=== PATIENT | female | born 1955 | race Caucasian/White ===

== ENCOUNTER 2018-04-04 19:05 | Emergency (ER) | payer MEDICARE, OTHER ==
[~2018-04-04] VITALS: Ht 162.6 cm; Wt 50.0 kg
[2018-04-04] MEDS ORDERED: PANT40TA25 PO (20:06)
[2018-04-04] MEDS ORDERED: LEVO75 PO (20:06)
[2018-04-04] MEDS ORDERED: ALEN10 PO (20:06)
[2018-04-04] MEDS ORDERED: CLON0.1T PO (20:06)
[2018-04-04] MEDS ORDERED: TRAZ-219 PO (20:10)
[2018-04-04] MEDS ORDERED: MIRT15 PO (20:10)
[2018-04-04] MEDS ORDERED: TRAM50TA4 PO (20:10)
[2018-04-04] MEDS ORDERED: MET750 PO (20:10)
[2018-04-04 20:17] LABS: BASOPHILS % (AUTO) 0.6 % (0.0-2.0); EOSINOPHILS % (AUTO) 0.5 % (1.0-6.0); HEMATOCRIT 38.3 % (36-46); HEMOGLOBIN 13.4 g/dL (12.0-16.0); LYMPHOCYTES # (AUTO) 2.6 K/uL (1.0-4.8); LYMPHOCYTES % (AUTO) 28.6 % (22.0-44.0); MEAN CORPUSCULAR VOLUME 91 fL (80-100); MONOCYTES # (AUTO) 0.7 K/uL (0.1-1.0); NEUTROPHILS # (AUTO) 5.7 K/uL (1.8-7.7); NEUTROPHILS % (AUTO) 62.3 % (40.0-70.0); PLATELET COUNT (AUTO) 233 K/uL (150-450); RED BLOOD CELL COUNT(AUTO) 4.19 MIL/uL (4.00-5.20); RED CELL DISTRIBUTION WIDTH 14.2 % (11.5-14.5)
[2018-04-04 20:27] LABS: ANION GAP 8 mmol/L (8-16); CALCIUM, TOTAL 9.6 mg/dL (8.8-10.5); CARBON DIOXIDE 29 mmol/L (22-29); CHLORIDE 100 mmol/L (98-107); CREATININE 0.54 mg/dL (0.60-1.30); GLOMERULAR FILTR. RATE CALC > 60 mL/min (>60); GLUCOSE,RANDOM 106 mg/dL (70-110); SODIUM SERUM 137 mmol/L (136-145); UREA NITROGEN, BLOOD 14 mg/dL (7-18)
[2018-04-04 20:32] LABS: ALANINE AMINOTRANSFERASE 16 U/L (12-78); ALBUMIN 3.9 g/dL (3.4-5.0); ALKALINE PHOSPHATASE 65 U/L (46-116); ASPARTATE AMINOTRANSFERASE 19 U/L (15-37); BILIRUBIN,TOTAL 0.4 mg/dL (0.1-1.0); TOTAL PROTEIN, SERUM 7.6 g/dL (6.4-8.2)
[2018-04-04 21:16] LABS: AMPHET/METH SCREEN,URINE NEGATIVE (NEGATIVE); BARBITURATE SCREEN, URINE NEGATIVE (NEGATIVE); BENZODIAZEPINES SCREEN,URINE NEGATIVE (NEGATIVE); CANNABINOID SCREEN,URINE NEGATIVE (NEGATIVE); COCAINE SCREEN,URINE NEGATIVE (NEGATIVE); METHADONE SCREEN, URINE NEGATIVE (NEGATIVE); OPIATE SCREEN,URINE NEGATIVE (NEGATIVE); PHENCYCLIDINE SCREEN,URINE NEGATIVE (NEGATIVE)
[2018-04-04 21:26] VITALS: BP 157/83
== END 2018-04-04 21:37 | disposition home or self-care (01) ==
LOC: EMS 19:15
DX: T73.0XXA Starvation, initial encounter (principal); R45.4 Irritability and anger; I10 Essential (primary) hypertension; E03.9 Hypothyroidism, unspecified; F32.9 Major depressive disorder, single episode, unspecified; Z88.8 Allergy status to other drugs, medicaments and biological substances; Z79.899 Other long term (current) drug therapy; X58.XXXA Exposure to other specified factors, initial encounter
CPT/HCPCS: 36415; 80053; 80307; 85025; 99285; G0480

== ENCOUNTER 2020-09-08 19:26 | Emergency (ER) | payer MEDICARE, MEDICAID ==
[~2020-09-08] VITALS: Ht 147.3 cm; Wt 45.5 kg
[~2020-09-08 19:26] MED LIST: ALEN10TA33 PO; CLON0.1T PO; LEVO75 PO; METH-661 PO; MIRT-89 PO; PANT-31 PO; TRAM50TA4 PO; TRAZ-252 PO
[2020-09-08] MEDS ORDERED: SODIUM CHLORIDE 0.9% 500 ML IV ONE (19:45)
[2020-09-08] MEDS ORDERED: ACETAMINOPHEN 500 MG TABLET PO ONE (19:45)
[2020-09-08] MEDS ORDERED: ACETAMINOPHEN 325 MG TABLET PO ONE (20:00)
[2020-09-08 20:26] LABS: BASOPHILS % (AUTO) 0.4 % (0.0-2.0); EOSINOPHILS % (AUTO) 0.1 % (1.0-6.0); HEMATOCRIT 31.5 % (36-46); HEMOGLOBIN 10.8 g/dL (12.0-16.0); LYMPHOCYTES # (AUTO) 2.3 K/uL (1.0-4.8); LYMPHOCYTES % (AUTO) 33.5 % (22.0-44.0); MEAN CORPUSCULAR HEMOGLOBIN 32.1 pg (26.0-34.0); MEAN CORPUSCULAR HGB CONC 34.2 G/dL (31.0-37.0); MEAN CORPUSCULAR VOLUME 94 fL (80-100); MONOCYTES # (AUTO) 0.6 K/uL (0.1-1.0); MONOCYTES % (AUTO) 8.7 % (2.0-9.0); NEUTROPHILS # (AUTO) 3.9 K/uL (1.8-7.7); NEUTROPHILS % (AUTO) 57.3 % (40.0-70.0); PLATELET COUNT (AUTO) 162 K/uL (150-450); RED BLOOD CELL COUNT(AUTO) 3.36 MIL/uL (4.00-5.20); RED CELL DISTRIBUTION WIDTH 12.7 % (11.5-14.5)
[2020-09-08 20:36] LABS: ANION GAP 11 mmol/L (8-16); CALCIUM, TOTAL 9.1 mg/dL (8.8-10.5); CARBON DIOXIDE 24 mmol/L (22-29); CHLORIDE 100 mmol/L (98-107); CREATININE 0.99 mg/dL (0.60-1.30); GLOMERULAR FILTR. RATE CALC 56 mL/min (>60); GLUCOSE,RANDOM 105 mg/dL (70-110); SODIUM SERUM 135 mmol/L (136-145); UREA NITROGEN, BLOOD 28 mg/dL (7-18)
[2020-09-08 20:43] LABS: B-TYPE NATRIURETIC PEPTIDE 21 pg/mL (0-100)
[2020-09-08 21:01] LABS: ALANINE AMINOTRANSFERASE 15 U/L (12-78); ALBUMIN 4.1 g/dL (3.4-5.0); ALKALINE PHOSPHATASE 54 U/L (46-116); ASPARTATE AMINOTRANSFERASE 16 U/L (15-37); BILIRUBIN,TOTAL 0.4 mg/dL (0.1-1.0); CREATINE KINASE, TOTAL ONLY 106 U/L (26-192); TOTAL PROTEIN, SERUM 6.9 g/dL (6.4-8.2)
[2020-09-08 21:48] VITALS: BP 108/57
== END 2020-09-08 23:19 | disposition home or self-care (01) ==
LOC: EMS 19:26
DX: R42 Dizziness and giddiness (principal); Z88.8 Allergy status to other drugs, medicaments and biological substances; Z79.899 Other long term (current) drug therapy
CPT/HCPCS: 71045; 80053; 82550; 83880; 84484; 85025; 93005; 96360; 99285; G0480; J7040; 36415-L1; 36415-TC

== ENCOUNTER 2020-11-28 17:26 | Emergency (ER) | payer MEDICARE, MEDICAID ==
[~2020-11-28] VITALS: Ht 149.9 cm; Wt 59.1 kg
[2020-11-28] MEDS ORDERED: TraMADol HCL 50 MG TABLET PO ONE (19:00)
[2020-11-28 19:22] LABS: BASOPHILS % (AUTO) 1.3 % (0.0-2.0); EOSINOPHILS % (AUTO) 1.6 % (1.0-6.0); HEMATOCRIT 34.3 % (36-46); HEMOGLOBIN 11.5 g/dL (12.0-16.0); LYMPHOCYTES # (AUTO) 1.8 K/uL (1.0-4.8); LYMPHOCYTES % (AUTO) 27.7 % (22.0-44.0); MEAN CORPUSCULAR HEMOGLOBIN 30.7 pg (26.0-34.0); MEAN CORPUSCULAR HGB CONC 33.5 G/dL (31.0-37.0); MEAN CORPUSCULAR VOLUME 92 fL (80-100); MONOCYTES # (AUTO) 0.6 K/uL (0.1-1.0); MONOCYTES % (AUTO) 9.2 % (2.0-9.0); NEUTROPHILS # (AUTO) 3.9 K/uL (1.8-7.7); NEUTROPHILS % (AUTO) 60.2 % (40.0-70.0); PLATELET COUNT (AUTO) 221 K/uL (150-450); RED BLOOD CELL COUNT(AUTO) 3.74 MIL/uL (4.00-5.20); RED CELL DISTRIBUTION WIDTH 15.7 % (11.5-14.5)
[2020-11-28 20:24] LABS: ANION GAP 6 mmol/L (8-16); CALCIUM, TOTAL 9.3 mg/dL (8.8-10.5); CARBON DIOXIDE 27 mmol/L (22-29); CHLORIDE 102 mmol/L (98-107); GLOMERULAR FILTR. RATE CALC > 60 mL/min (>60); GLUCOSE,RANDOM 97 mg/dL (70-110); POTASSIUM 3.8 mmol/L (3.5-5.1); SODIUM SERUM 135 mmol/L (136-145); UREA NITROGEN, BLOOD 18 mg/dL (7-18)
[2020-11-28 20:31] LABS: ALANINE AMINOTRANSFERASE 20 U/L (12-78); ALBUMIN 3.9 g/dL (3.4-5.0); ALKALINE PHOSPHATASE 48 U/L (46-116); ASPARTATE AMINOTRANSFERASE 16 U/L (15-37); BILIRUBIN,TOTAL 0.4 mg/dL (0.1-1.0); TOTAL PROTEIN, SERUM 7.2 g/dL (6.4-8.2)
[2020-11-28 21:49] VITALS: BP 141/88
== END 2020-11-28 20:27 | disposition home or self-care (01) ==
LOC: EMS 17:28
DX: M54.6 Pain in thoracic spine (principal); R07.89 Other chest pain; G89.29 Other chronic pain; F32.9 Major depressive disorder, single episode, unspecified; I10 Essential (primary) hypertension; Z91.011 Allergy to milk products
CPT/HCPCS: 71045; 80053; 85025; 99285; 36415-L1; 36415-TC

== ENCOUNTER 2020-12-04 21:55 | Emergency (ER) | payer MEDICARE, MEDICAID ==
[~2020-12-04] VITALS: Ht 142.2 cm; Wt 39.5 kg
[2020-12-04] MEDS ORDERED: OMEP20 PO (22:30)
[2020-12-04] MEDS ORDERED: LEVO50 PO (22:36)
[2020-12-04] MEDS ORDERED: DICL100G31 TP (22:36)
[2020-12-04] MEDS ORDERED: ALEN70TA65 PO (22:36)
[2020-12-04] MEDS ORDERED: LORA10TA7 PO (22:36)
[2020-12-04] MEDS ORDERED: AMLO-258 PO (22:36)
[2020-12-04] MEDS ORDERED: CALC-789 PO (22:36)
[2020-12-04] MEDS ORDERED: DIVA-85 PO (22:36)
[2020-12-04] MEDS ORDERED: SERT-158 PO (22:36)
[2020-12-04] MEDS ORDERED: [UNRECOGNIZED DRUG - CODE] PO (22:36)
[2020-12-05 03:00] VITALS: BP 130/75
== END 2020-12-05 03:35 | disposition home or self-care (01) ==
LOC: EMS 21:57
DX: M48.56XA Collapsed vertebra, not elsewhere classified, lumbar region, initial encounter for fracture (principal); G89.29 Other chronic pain; M54.5 Low back pain; M54.2 Cervicalgia; M25.571 Pain in right ankle and joints of right foot; E03.9 Hypothyroidism, unspecified; I10 Essential (primary) hypertension; F32.9 Major depressive disorder, single episode, unspecified; Z88.8 Allergy status to other drugs, medicaments and biological substances; Z79.899 Other long term (current) drug therapy
CPT/HCPCS: 72040; 72100; 99284; 73610-TC; Z7502

== ENCOUNTER 2021-01-07 14:07 | Emergency (ER) | payer MEDICARE, MEDICAID ==
[~2021-01-07] VITALS: Ht 165.1 cm; Wt 56.8 kg
[~2021-01-07 14:07] MED LIST changes: -ALEN10TA33 PO; +ALEN70TA65 PO; +AMLO-258 PO; +CALC-789 PO; -CLON0.1T PO; +DICL100G31 TP; +DIVA-85 PO; +LEVO50 PO; -LEVO75 PO; +LORA10TA7 PO; -METH-661 PO; -MIRT-89 PO; +OMEP20 PO; -PANT-31 PO; +SERT-158 PO; -TRAM50TA4 PO; -TRAZ-252 PO; +[UNRECOGNIZED DRUG - CODE] PO
[2021-01-07] MEDS ORDERED: ACETAMINOPHEN 325 MG TABLET PO ONE (16:15)
[2021-01-07 17:50] VITALS: BP 138/80
== END 2021-01-07 18:39 | disposition home or self-care (01) ==
LOC: EMS 14:11
DX: M25.551 Pain in right hip (principal); M54.50 Low back pain, unspecified; Y04.8XXA Assault by other bodily force, initial encounter; Y93.89 Activity, other specified; Y92.89 Other specified places as the place of occurrence of the external cause; Y99.8 Other external cause status
CPT/HCPCS: 72100; 72170; 99284; 99285; Z7502; Z7610

== ENCOUNTER 2021-11-13 14:08 | Inpatient (IN) | payer MEDICARE, MEDICAID ==
[~2021-11-13] VITALS: Ht 142.2 cm; Wt 46.7 kg
[2021-11-13 14:54] LABS: EOSINOPHILS % (AUTO) 0.2 % (1.0-6.0); HEMATOCRIT 37.4 % (36-46); HEMOGLOBIN 12.6 g/dL (12.0-16.0); LYMPHOCYTES # (AUTO) 2.1 K/uL (1.0-4.8); LYMPHOCYTES % (AUTO) 25.8 % (22.0-44.0); MEAN CORPUSCULAR HEMOGLOBIN 30.7 pg (26.0-34.0); MEAN CORPUSCULAR HGB CONC 33.8 G/dL (31.0-37.0); MEAN CORPUSCULAR VOLUME 91 fL (80-100); MONOCYTES # (AUTO) 0.6 K/uL (0.1-1.0); MONOCYTES % (AUTO) 6.9 % (2.0-9.0); NEUTROPHILS # (AUTO) 5.5 K/uL (1.8-7.7); NEUTROPHILS % (AUTO) 66.1 % (40.0-70.0); PLATELET COUNT (AUTO) 222 K/uL (150-450); RED BLOOD CELL COUNT(AUTO) 4.12 MIL/uL (4.00-5.20); RED CELL DISTRIBUTION WIDTH 13.4 % (11.5-14.5)
[2021-11-13 15:17] LABS: ANION GAP 10 mmol/L (8-16); CALCIUM, TOTAL 9.9 mg/dL (8.8-10.5); CARBON DIOXIDE 25 mmol/L (22-29); CHLORIDE 105 mmol/L (98-107); GLOMERULAR FILTR. RATE CALC > 60 mL/min (>60); GLUCOSE,RANDOM 89 mg/dL (70-110); POTASSIUM 4.2 mmol/L (3.5-5.1); SODIUM SERUM 140 mmol/L (136-145); UREA NITROGEN, BLOOD 22 mg/dL (7-18)
[2021-11-13 15:55] LABS: ALANINE AMINOTRANSFERASE 30 U/L (12-78); ALKALINE PHOSPHATASE 70 U/L (46-116); ASPARTATE AMINOTRANSFERASE 26 U/L (15-37); BILIRUBIN,TOTAL 0.5 mg/dL (0.1-1.0); TOTAL PROTEIN, SERUM 7.5 g/dL (6.4-8.2)
[2021-11-13] MEDS ORDERED: ACETAMINOPHEN 500 MG TABLET PO ONE (18:00)
[2021-11-13] MEDS ORDERED: ZOLPIDEM TARTRATE 10 MG TABLET PO PRN (18:45)
[2021-11-13 19:21] LABS: APPEARANCE,URINE CLEAR (CLEAR); BILIRUBIN,URINE NEGATIVE (NEGATIVE); GLUCOSE, URINE (UA) NEGATIVE (NEGATIVE); KETONES,URINE TRACE mg/dL (NEGATIVE); LEUKOCYTE ESTERASE ,URINE MODERATE (NEGATIVE); NITRATE,URINE NEGATIVE (NEGATIVE); OCCULT BLOOD,URINE NEGATIVE (NEGATIVE); PH,URINE 6.5 (5.0-8.0); PROTEIN,URINE TRACE mg/dL (NEGATIVE); UROBILINOGEN,URINE <=1.0 mg/dL (<=1.0)
[2021-11-13 19:28] LABS: AMPHET/METH SCREEN,URINE NEGATIVE (NEGATIVE); BARBITURATE SCREEN, URINE NEGATIVE (NEGATIVE); BENZODIAZEPINES SCREEN,URINE NEGATIVE (NEGATIVE); CANNABINOID SCREEN,URINE POSITIVE (NEGATIVE); COCAINE SCREEN,URINE NEGATIVE (NEGATIVE); METHADONE SCREEN, URINE NEGATIVE (NEGATIVE); OPIATE SCREEN,URINE NEGATIVE (NEGATIVE)
[2021-11-13 19:32] LABS: PHENCYCLIDINE SCREEN,URINE NEGATIVE (NEGATIVE)
[2021-11-13 19:34] LABS: BACTERIA,URINE Few /HPF (None Seen); RBC,URINE 0-2 /HPF (0-2)
[2021-11-14 00:25] LABS: COVID AG,FIA SOURCE NASAL SWAB
[2021-11-14 11:03] VITALS: BP 129/82
[2021-11-14] MEDS ORDERED: ALBUTEROL SULFATE HFA 90 MCG/PUFF 8 GM INHALER IH PRN (11:30)
[2021-11-14] MEDS ORDERED: ONDANSETRON HCL 4 MG TABLET PO PRN (11:30)
[2021-11-14] MEDS ORDERED: LOPERAMIDE HCL 2 MG CAPSULE PO PRN (11:30)
[2021-11-14] MEDS ORDERED: BENZOCAINE/MENTHOL LOZENGE PO PRN (11:30)
[2021-11-14] MEDS ORDERED: BACITRACIN 28 GM OINTMENT TP PRN (11:30)
[2021-11-14] MEDS ORDERED: PETROLATUM,WHITE 28 GM JELLY TP PRN (11:30)
[2021-11-14] MEDS ORDERED: MAG HYDROX/AL HYDROX/SIMETH ES 30 ML SUSPENSION UDCUP PO PRN (11:30)
[2021-11-14] MEDS ORDERED: MAGNESIUM HYDROXIDE SUSPENSION 30 ML UDCUP PO PRN (11:30)
[2021-11-14] MEDS ORDERED: CloNIDine HCL 0.1 MG TABLET PO PRN (11:30)
[2021-11-14 16:18] VITALS: BP 127/75
[2021-11-14] MEDS: ACETAMINOPHEN 325 MG TABLET PO PRN (17:18)
[2021-11-15 00:10] VITALS: BP 122/72
[2021-11-15] MEDS: LEVOTHYROXINE SODIUM 50 MCG TABLET PO SCH (06:35)
[2021-11-15 08:12] VITALS: BP 142/94
[2021-11-15] MEDS: DOCUSATE SODIUM 100 MG CAPSULE PO SCH (08:24)
[2021-11-15] MEDS: LORATADINE 10 MG TABLET PO SCH (08:25)
[2021-11-15] MEDS: AmLODIPine BESYLATE 5 MG TABLET PO SCH (08:25)
[2021-11-15] MEDS: OMEPRAZOLE 20 MG CAPSULE PO SCH (08:25)
[2021-11-15] MEDS: SERTRALINE HCL 50 MG TABLET PO SCH (08:25)
[2021-11-15] MEDS: DIVALPROEX SODIUM 500 MG DR TABLET PO SCH ×2 (08:25→16:29)
[2021-11-15] MEDS: ACETAMINOPHEN 325 MG TABLET PO PRN (08:33)
[2021-11-15 08:56] VITALS: BP 117/74
[2021-11-15 16:31] VITALS: BP 135/75
[2021-11-16 04:32] VITALS: BP 128/78
[2021-11-16] MEDS: LEVOTHYROXINE SODIUM 50 MCG TABLET PO SCH (06:31)
[2021-11-16 08:22] VITALS: BP 144/78
[2021-11-16] MEDS: OMEPRAZOLE 20 MG CAPSULE PO SCH (08:49)
[2021-11-16] MEDS: AmLODIPine BESYLATE 5 MG TABLET PO SCH (08:49)
[2021-11-16] MEDS: DOCUSATE SODIUM 100 MG CAPSULE PO SCH (08:49)
[2021-11-16] MEDS: SERTRALINE HCL 50 MG TABLET PO SCH (08:49)
[2021-11-16] MEDS: LORATADINE 10 MG TABLET PO SCH (08:49)
[2021-11-16] MEDS: DIVALPROEX SODIUM 500 MG DR TABLET PO SCH ×2 (08:49→16:45)
[2021-11-16] MEDS: LORazepam 2 MG TABLET PO PRN (11:14)
[2021-11-16] MEDS: LURASIDONE HCL 60 MG TABLET PO SCH (20:31)
[2021-11-16 20:32] VITALS: BP 120/63
[2021-11-17] MEDS: LEVOTHYROXINE SODIUM 50 MCG TABLET PO SCH (06:40)
[2021-11-17 06:47] VITALS: BP 128/81
[2021-11-17] MEDS: ACETAMINOPHEN 325 MG TABLET PO PRN ×2 (06:55→16:25)
[2021-11-17] MEDS: LORATADINE 10 MG TABLET PO SCH (08:30)
[2021-11-17] MEDS: DOCUSATE SODIUM 100 MG CAPSULE PO SCH (08:30)
[2021-11-17] MEDS: AmLODIPine BESYLATE 5 MG TABLET PO SCH (08:31)
[2021-11-17] MEDS: OMEPRAZOLE 20 MG CAPSULE PO SCH (08:31)
[2021-11-17] MEDS: DIVALPROEX SODIUM 500 MG DR TABLET PO SCH ×2 (08:31→16:31)
[2021-11-17 08:35] VITALS: BP 125/64
[2021-11-17] MEDS: SERTRALINE HCL 50 MG TABLET PO SCH (08:38)
[2021-11-17] MEDS: LORazepam 2 MG TABLET PO PRN (11:56)
[2021-11-17 16:19] VITALS: BP 113/76
[2021-11-17 20:10] VITALS: BP 113/76
[2021-11-17] MEDS: LURASIDONE HCL 60 MG TABLET PO SCH (20:29)
[2021-11-18] MEDS: LEVOTHYROXINE SODIUM 50 MCG TABLET PO SCH (06:33)
[2021-11-18] MEDS: DOCUSATE SODIUM 100 MG CAPSULE PO SCH (08:03)
[2021-11-18] MEDS: LORATADINE 10 MG TABLET PO SCH (08:03)
[2021-11-18] MEDS: OMEPRAZOLE 20 MG CAPSULE PO SCH (08:03)
[2021-11-18] MEDS: AmLODIPine BESYLATE 5 MG TABLET PO SCH (08:03)
[2021-11-18] MEDS: DIVALPROEX SODIUM 500 MG DR TABLET PO SCH ×2 (08:03→16:13)
[2021-11-18] MEDS: SERTRALINE HCL 50 MG TABLET PO SCH (08:03)
[2021-11-18] MEDS: LORazepam 2 MG TABLET PO PRN ×2 (08:04→20:22)
[2021-11-18 08:17] VITALS: BP 131/81
[2021-11-18] MEDS: ACETAMINOPHEN 325 MG TABLET PO PRN (16:13)
[2021-11-18 20:22] VITALS: BP 113/75
[2021-11-18] MEDS: LURASIDONE HCL 60 MG TABLET PO SCH (20:22)
[2021-11-19] MEDS: LEVOTHYROXINE SODIUM 50 MCG TABLET PO SCH (06:03)
[2021-11-19] MEDS: ACETAMINOPHEN 325 MG TABLET PO PRN ×2 (06:04→13:07)
[2021-11-19 08:14] VITALS: BP 121/76
[2021-11-19] MEDS: OMEPRAZOLE 20 MG CAPSULE PO SCH (08:18)
[2021-11-19] MEDS: LORazepam 2 MG TABLET PO PRN ×2 (08:18→13:08)
[2021-11-19] MEDS: DIVALPROEX SODIUM 500 MG DR TABLET PO SCH ×2 (08:18→16:28)
[2021-11-19] MEDS: AmLODIPine BESYLATE 5 MG TABLET PO SCH (08:18)
[2021-11-19] MEDS: LORATADINE 10 MG TABLET PO SCH (08:18)
[2021-11-19] MEDS: DOCUSATE SODIUM 100 MG CAPSULE PO SCH (08:18)
[2021-11-19] MEDS: SERTRALINE HCL 50 MG TABLET PO SCH (08:19)
[2021-11-19 09:41] LABS: GLUCOMETER DEV NAME(LOC) POC.BV
[2021-11-19 20:14] VITALS: BP 113/61
[2021-11-19] MEDS: LURASIDONE HCL 60 MG TABLET PO SCH (20:29)
[2021-11-20 03:32] VITALS: BP 118/72
[2021-11-20] MEDS: IBUPROFEN 600 MG TABLET PO PRN (03:37)
[2021-11-20] MEDS: LEVOTHYROXINE SODIUM 50 MCG TABLET PO SCH (06:28)
[2021-11-20 06:52] VITALS: BP 123/76
[2021-11-20 08:12] VITALS: BP 118/70
[2021-11-20] MEDS: LORATADINE 10 MG TABLET PO SCH (08:18)
[2021-11-20] MEDS: AmLODIPine BESYLATE 5 MG TABLET PO SCH (08:18)
[2021-11-20] MEDS: DOCUSATE SODIUM 100 MG CAPSULE PO SCH (08:18)
[2021-11-20] MEDS: DIVALPROEX SODIUM 500 MG DR TABLET PO SCH ×2 (08:18→17:11)
[2021-11-20] MEDS: OMEPRAZOLE 20 MG CAPSULE PO SCH (08:18)
[2021-11-20] MEDS: SERTRALINE HCL 50 MG TABLET PO SCH (08:23)
[2021-11-20] MEDS: ACETAMINOPHEN 325 MG TABLET PO PRN ×2 (08:30→13:51)
[2021-11-20] MEDS: LORazepam 2 MG TABLET PO PRN ×2 (08:30→16:42)
[2021-11-20] MEDS: TiZANidine HCL 4 MG TABLET PO PRN (16:25)
[2021-11-20] MEDS: DICLOFENAC SODIUM 1% 100 GM GEL [2GM] TP PRN (16:31)
[2021-11-20] MEDS: GABAPENTIN 100 MG CAPSULE PO SCH (17:11)
[2021-11-20] MEDS: LURASIDONE HCL 60 MG TABLET PO SCH (20:11)
[2021-11-20 20:19] VITALS: BP 138/84
[2021-11-21] MEDS: ACETAMINOPHEN 325 MG TABLET PO PRN (03:32)
[2021-11-21 03:33] VITALS: BP 129/70
[2021-11-21] MEDS: IBUPROFEN 600 MG TABLET PO PRN (06:22)
[2021-11-21] MEDS: LEVOTHYROXINE SODIUM 50 MCG TABLET PO SCH (06:51)
[2021-11-21] MEDS: GABAPENTIN 100 MG CAPSULE PO SCH ×2 (08:14→16:09)
[2021-11-21] MEDS: AmLODIPine BESYLATE 5 MG TABLET PO SCH (08:14)
[2021-11-21] MEDS: DOCUSATE SODIUM 100 MG CAPSULE PO SCH (08:14)
[2021-11-21] MEDS: DIVALPROEX SODIUM 500 MG DR TABLET PO SCH ×2 (08:14→16:09)
[2021-11-21] MEDS: OMEPRAZOLE 20 MG CAPSULE PO SCH (08:14)
[2021-11-21] MEDS: LORATADINE 10 MG TABLET PO SCH (08:14)
[2021-11-21] MEDS: SERTRALINE HCL 50 MG TABLET PO SCH (08:15)
[2021-11-21 08:26] VITALS: BP 123/83
[2021-11-21] MEDS: LORazepam 2 MG TABLET PO PRN ×2 (11:23→19:48)
[2021-11-21] MEDS: TiZANidine HCL 4 MG TABLET PO PRN (14:04)
[2021-11-21] MEDS: DICLOFENAC SODIUM 1% 100 GM GEL [2GM] TP PRN (14:09)
[2021-11-21] MEDS: LURASIDONE HCL 60 MG TABLET PO SCH (20:02)
[2021-11-21 20:13] VITALS: BP 140/71
[2021-11-22 05:50] VITALS: BP 121/76
[2021-11-22] MEDS: LORazepam 2 MG TABLET PO PRN ×2 (05:54→11:35)
[2021-11-22] MEDS: LEVOTHYROXINE SODIUM 50 MCG TABLET PO SCH (05:54)
[2021-11-22] MEDS: ACETAMINOPHEN 325 MG TABLET PO PRN ×2 (05:54→16:43)
[2021-11-22 09:24] VITALS: BP 109/69
[2021-11-22 09:36] VITALS: BP 109/69
[2021-11-22] MEDS: LORATADINE 10 MG TABLET PO SCH (10:08)
[2021-11-22] MEDS: AmLODIPine BESYLATE 5 MG TABLET PO SCH (10:08)
[2021-11-22] MEDS: OMEPRAZOLE 20 MG CAPSULE PO SCH (10:08)
[2021-11-22] MEDS: GABAPENTIN 100 MG CAPSULE PO SCH ×2 (10:08→16:02)
[2021-11-22] MEDS: DIVALPROEX SODIUM 500 MG DR TABLET PO SCH ×2 (10:08→16:02)
[2021-11-22] MEDS: DOCUSATE SODIUM 100 MG CAPSULE PO SCH (10:08)
[2021-11-22] MEDS: IBUPROFEN 600 MG TABLET PO PRN (11:29)
[2021-11-22 16:35] VITALS: BP 135/79
[2021-11-22 20:04] VITALS: BP 138/84
[2021-11-22] MEDS: LURASIDONE HCL 80 MG TABLET PO SCH (20:08)
[2021-11-22] MEDS: TraZODone HCL 50 MG TABLET PO SCH (20:08)
[2021-11-23 05:54] VITALS: BP 130/79
[2021-11-23] MEDS: LORazepam 2 MG TABLET PO PRN ×3 (05:57→16:52)
[2021-11-23] MEDS: LEVOTHYROXINE SODIUM 50 MCG TABLET PO SCH (05:57)
[2021-11-23] MEDS: IBUPROFEN 600 MG TABLET PO PRN (05:57)
[2021-11-23 08:17] VITALS: BP 141/83
[2021-11-23] MEDS: DIVALPROEX SODIUM 500 MG DR TABLET PO SCH ×2 (09:09→17:39)
[2021-11-23] MEDS: LORATADINE 10 MG TABLET PO SCH (09:09)
[2021-11-23] MEDS: OMEPRAZOLE 20 MG CAPSULE PO SCH (09:09)
[2021-11-23] MEDS: GABAPENTIN 100 MG CAPSULE PO SCH ×2 (09:09→17:40)
[2021-11-23] MEDS: DOCUSATE SODIUM 100 MG CAPSULE PO SCH (09:09)
[2021-11-23] MEDS: AmLODIPine BESYLATE 5 MG TABLET PO SCH (09:09)
[2021-11-23] MEDS: ACETAMINOPHEN 325 MG TABLET PO PRN ×2 (11:07→16:52)
[2021-11-23] MEDS: DICLOFENAC SODIUM 1% 100 GM GEL [2GM] TP PRN (16:54)
[2021-11-23 20:40] VITALS: BP 135/74
[2021-11-23] MEDS: TraZODone HCL 50 MG TABLET PO SCH (22:35)
[2021-11-23] MEDS: LURASIDONE HCL 80 MG TABLET PO SCH (22:35)
[2021-11-24] MEDS: LEVOTHYROXINE SODIUM 50 MCG TABLET PO SCH (06:43)
[2021-11-24 08:21] VITALS: BP 142/87
[2021-11-24] MEDS: GABAPENTIN 100 MG CAPSULE PO SCH ×2 (08:24→16:22)
[2021-11-24] MEDS: AmLODIPine BESYLATE 5 MG TABLET PO SCH (08:24)
[2021-11-24] MEDS: DOCUSATE SODIUM 100 MG CAPSULE PO SCH (08:25)
[2021-11-24] MEDS: OMEPRAZOLE 20 MG CAPSULE PO SCH (08:25)
[2021-11-24] MEDS: LORATADINE 10 MG TABLET PO SCH (08:25)
[2021-11-24] MEDS: DIVALPROEX SODIUM 500 MG DR TABLET PO SCH ×2 (08:25→16:22)
[2021-11-24] MEDS: ACETAMINOPHEN 325 MG TABLET PO PRN ×2 (09:25→16:23)
[2021-11-24] MEDS: HALOPERIDOL 5 MG TABLET PO PRN ×2 (10:29→10:36)
[2021-11-24] MEDS: LORazepam 2 MG TABLET PO PRN ×2 (10:29→18:02)
[2021-11-24] MEDS: IBUPROFEN 600 MG TABLET PO PRN (14:12)
[2021-11-24 15:45] VITALS: BP 139/95
[2021-11-24] MEDS: TiZANidine HCL 4 MG TABLET PO PRN (15:45)
[2021-11-24] MEDS: TraZODone HCL 50 MG TABLET PO SCH (20:25)
[2021-11-24] MEDS: LURASIDONE HCL 80 MG TABLET PO SCH (20:25)
[2021-11-24 20:44] VITALS: BP 129/85
[2021-11-25] VITALS (9 sets, daily range): BP systolic 121–153; BP diastolic 67–90
[2021-11-25] MEDS: LEVOTHYROXINE SODIUM 50 MCG TABLET PO SCH (06:39)
[2021-11-25] MEDS: OMEPRAZOLE 20 MG CAPSULE PO SCH (08:42)
[2021-11-25] MEDS: DOCUSATE SODIUM 100 MG CAPSULE PO SCH (08:42)
[2021-11-25] MEDS: LORATADINE 10 MG TABLET PO SCH (08:42)
[2021-11-25] MEDS: AmLODIPine BESYLATE 5 MG TABLET PO SCH (08:42)
[2021-11-25] MEDS: GABAPENTIN 100 MG CAPSULE PO SCH ×2 (08:42→16:13)
[2021-11-25] MEDS: DIVALPROEX SODIUM 500 MG DR TABLET PO SCH ×2 (08:43→16:13)
[2021-11-25] MEDS: ACETAMINOPHEN 325 MG TABLET PO PRN (08:49)
[2021-11-25] MEDS: LORazepam 2 MG TABLET PO PRN (11:51)
[2021-11-25] MEDS: TiZANidine HCL 4 MG TABLET PO PRN (11:55)
[2021-11-25] MEDS: IBUPROFEN 600 MG TABLET PO PRN (18:36)
[2021-11-25] MEDS: DICLOFENAC SODIUM 1% 100 GM GEL [2GM] TP PRN (18:53)
[2021-11-25] MEDS: LURASIDONE HCL 80 MG TABLET PO SCH (20:22)
[2021-11-25] MEDS: TraZODone HCL 50 MG TABLET PO SCH (20:22)
[2021-11-26] MEDS: LEVOTHYROXINE SODIUM 50 MCG TABLET PO SCH (06:36)
[2021-11-26 08:15] VITALS: BP 131/86
[2021-11-26] MEDS: LORATADINE 10 MG TABLET PO SCH (08:21)
[2021-11-26] MEDS: OMEPRAZOLE 20 MG CAPSULE PO SCH (08:21)
[2021-11-26] MEDS: DIVALPROEX SODIUM 500 MG DR TABLET PO SCH ×2 (08:21→16:08)
[2021-11-26] MEDS: AmLODIPine BESYLATE 5 MG TABLET PO SCH (08:21)
[2021-11-26] MEDS: DOCUSATE SODIUM 100 MG CAPSULE PO SCH (08:21)
[2021-11-26] MEDS: GABAPENTIN 100 MG CAPSULE PO SCH ×2 (08:21→16:08)
[2021-11-26] MEDS: TiZANidine HCL 4 MG TABLET PO PRN (09:46)
[2021-11-26] MEDS: LORazepam 2 MG TABLET PO PRN ×2 (12:22→20:27)
[2021-11-26] MEDS: ACETAMINOPHEN 325 MG TABLET PO PRN ×2 (13:18→20:27)
[2021-11-26 15:41] LABS: GLUCOMETER DEV NAME(LOC) POC.BV
[2021-11-26 16:05] VITALS: BP 131/79
[2021-11-26] MEDS: IBUPROFEN 600 MG TABLET PO PRN (16:08)
[2021-11-26 20:18] VITALS: BP 135/74
[2021-11-26] MEDS: LURASIDONE HCL 80 MG TABLET PO SCH (20:27)
[2021-11-26 20:36] LABS: GLUCOMETER DEV NAME(LOC) BV2X.2; GLUCOSE,POINT OF CARE 224 MG/DL (70-110)
[2021-11-26] MEDS: TraZODone HCL 50 MG TABLET PO SCH (22:37)
[2021-11-27] MEDS: LEVOTHYROXINE SODIUM 50 MCG TABLET PO SCH (06:09)
[2021-11-27] MEDS: ACETAMINOPHEN 325 MG TABLET PO PRN ×2 (06:12→15:58)
[2021-11-27] MEDS: DOCUSATE SODIUM 100 MG CAPSULE PO SCH (08:00)
[2021-11-27] MEDS: AmLODIPine BESYLATE 5 MG TABLET PO SCH (08:00)
[2021-11-27] MEDS: LORATADINE 10 MG TABLET PO SCH (08:01)
[2021-11-27] MEDS: LORazepam 2 MG TABLET PO PRN ×3 (08:01→20:09)
[2021-11-27] MEDS: OMEPRAZOLE 20 MG CAPSULE PO SCH (08:01)
[2021-11-27] MEDS: DIVALPROEX SODIUM 500 MG DR TABLET PO SCH ×2 (08:01→16:05)
[2021-11-27] MEDS: GABAPENTIN 100 MG CAPSULE PO SCH ×2 (08:01→16:05)
[2021-11-27 08:08] VITALS: BP 141/89
[2021-11-27] MEDS: IBUPROFEN 600 MG TABLET PO PRN ×2 (11:19→19:19)
[2021-11-27] MEDS: TiZANidine HCL 4 MG TABLET PO PRN (12:05)
[2021-11-27] MEDS: DICLOFENAC SODIUM 1% 100 GM GEL [2GM] TP PRN (13:09)
[2021-11-27 19:19] VITALS: BP 145/84
[2021-11-27 20:18] VITALS: BP 142/83
[2021-11-27] MEDS: LURASIDONE HCL 80 MG TABLET PO SCH (20:28)
[2021-11-27] MEDS: TraZODone HCL 50 MG TABLET PO SCH (20:28)
[2021-11-28] MEDS: LEVOTHYROXINE SODIUM 50 MCG TABLET PO SCH (06:24)
[2021-11-28] MEDS: DOCUSATE SODIUM 100 MG CAPSULE PO SCH (08:09)
[2021-11-28] MEDS: AmLODIPine BESYLATE 5 MG TABLET PO SCH (08:09)
[2021-11-28] MEDS: LORATADINE 10 MG TABLET PO SCH (08:09)
[2021-11-28] MEDS: DIVALPROEX SODIUM 500 MG DR TABLET PO SCH ×3 (08:09→16:35)
[2021-11-28] MEDS: OMEPRAZOLE 20 MG CAPSULE PO SCH (08:09)
[2021-11-28] MEDS: GABAPENTIN 100 MG CAPSULE PO SCH ×2 (08:09→16:35)
[2021-11-28] MEDS: ACETAMINOPHEN 325 MG TABLET PO PRN ×2 (08:10→17:40)
[2021-11-28 08:33] VITALS: BP 129/81
[2021-11-28] MEDS: TiZANidine HCL 4 MG TABLET PO PRN (09:23)
[2021-11-28] MEDS: IBUPROFEN 600 MG TABLET PO PRN (12:44)
[2021-11-28] MEDS: LORazepam 2 MG TABLET PO PRN ×2 (12:44→17:39)
[2021-11-28 20:06] VITALS: BP 142/85
[2021-11-28] MEDS: TraZODone HCL 50 MG TABLET PO SCH (20:07)
[2021-11-28] MEDS: LURASIDONE HCL 80 MG TABLET PO SCH (20:07)
[2021-11-29] MEDS: LEVOTHYROXINE SODIUM 50 MCG TABLET PO SCH (06:28)
[2021-11-29 08:40] VITALS: BP 143/97
[2021-11-29] MEDS: OMEPRAZOLE 20 MG CAPSULE PO SCH (08:45)
[2021-11-29] MEDS: GABAPENTIN 100 MG CAPSULE PO SCH ×2 (08:45→16:00)
[2021-11-29] MEDS: DOCUSATE SODIUM 100 MG CAPSULE PO SCH (08:45)
[2021-11-29] MEDS: TiZANidine HCL 4 MG TABLET PO PRN (08:45)
[2021-11-29] MEDS: DIVALPROEX SODIUM 500 MG DR TABLET PO SCH ×2 (08:45→16:00)
[2021-11-29] MEDS: LORATADINE 10 MG TABLET PO SCH (08:45)
[2021-11-29] MEDS: AmLODIPine BESYLATE 5 MG TABLET PO SCH (08:45)
[2021-11-29] MEDS: LORazepam 2 MG TABLET PO PRN (11:12)
[2021-11-29 11:13] VITALS: BP 137/87
[2021-11-29] MEDS: ACETAMINOPHEN 325 MG TABLET PO PRN (11:13)
[2021-11-29] MEDS: HALOPERIDOL 5 MG TABLET PO PRN (13:39)
[2021-11-29] MEDS: IBUPROFEN 600 MG TABLET PO PRN (16:00)
[2021-11-29 20:01] VITALS: BP 140/69
[2021-11-29] MEDS: LURASIDONE HCL 80 MG TABLET PO SCH (20:04)
[2021-11-29] MEDS: TraZODone HCL 50 MG TABLET PO SCH (20:04)
[2021-11-30] MEDS: LEVOTHYROXINE SODIUM 50 MCG TABLET PO SCH (06:18)
[2021-11-30] MEDS: GABAPENTIN 100 MG CAPSULE PO SCH ×2 (08:58→16:29)
[2021-11-30] MEDS: OMEPRAZOLE 20 MG CAPSULE PO SCH (08:58)
[2021-11-30] MEDS: LORATADINE 10 MG TABLET PO SCH (08:58)
[2021-11-30] MEDS: DIVALPROEX SODIUM 500 MG DR TABLET PO SCH ×2 (08:58→16:29)
[2021-11-30] MEDS: AmLODIPine BESYLATE 5 MG TABLET PO SCH (08:58)
[2021-11-30] MEDS: DOCUSATE SODIUM 100 MG CAPSULE PO SCH (08:58)
[2021-11-30] MEDS: LORazepam 2 MG TABLET PO PRN (09:07)
[2021-11-30] MEDS: ACETAMINOPHEN 325 MG TABLET PO PRN ×2 (09:07→16:30)
[2021-11-30 09:35] VITALS: BP 145/90
[2021-11-30] MEDS: TiZANidine HCL 4 MG TABLET PO PRN (13:08)
[2021-11-30] MEDS: DICLOFENAC SODIUM 1% 100 GM GEL [2GM] TP PRN (13:27)
[2021-11-30 16:30] VITALS: BP 129/80
[2021-11-30] MEDS: IBUPROFEN 600 MG TABLET PO PRN (20:10)
[2021-11-30] MEDS: TraZODone HCL 50 MG TABLET PO SCH (20:10)
[2021-11-30] MEDS: LURASIDONE HCL 80 MG TABLET PO SCH (20:10)
[2021-11-30 20:17] VITALS: BP 149/93
[2021-12-01] MEDS: LEVOTHYROXINE SODIUM 50 MCG TABLET PO SCH (06:25)
[2021-12-01 08:32] VITALS: BP 145/90
[2021-12-01] MEDS: LORATADINE 10 MG TABLET PO SCH (08:58)
[2021-12-01] MEDS: AmLODIPine BESYLATE 5 MG TABLET PO SCH (08:58)
[2021-12-01] MEDS: DOCUSATE SODIUM 100 MG CAPSULE PO SCH (08:58)
[2021-12-01] MEDS: GABAPENTIN 100 MG CAPSULE PO SCH ×2 (08:58→16:40)
[2021-12-01] MEDS: DIVALPROEX SODIUM 500 MG DR TABLET PO SCH ×2 (08:58→16:40)
[2021-12-01] MEDS: OMEPRAZOLE 20 MG CAPSULE PO SCH (08:58)
[2021-12-01] MEDS: ACETAMINOPHEN 325 MG TABLET PO PRN ×2 (09:01→15:51)
[2021-12-01] MEDS: TiZANidine HCL 4 MG TABLET PO PRN ×2 (15:45→16:40)
[2021-12-01 15:47] VITALS: BP 148/90
[2021-12-01] MEDS: LORazepam 2 MG TABLET PO PRN (19:06)
[2021-12-01] MEDS: IBUPROFEN 600 MG TABLET PO PRN (19:07)
[2021-12-01 19:08] VITALS: BP 150/86
[2021-12-01 20:13] VITALS: BP 142/84
[2021-12-01] MEDS: LURASIDONE HCL 80 MG TABLET PO SCH (20:30)
[2021-12-01] MEDS: TraZODone HCL 50 MG TABLET PO SCH (20:30)
[2021-12-02] MEDS: LEVOTHYROXINE SODIUM 50 MCG TABLET PO SCH (05:50)
[2021-12-02 08:21] VITALS: BP 114/93
[2021-12-02] MEDS: DIVALPROEX SODIUM 500 MG DR TABLET PO SCH ×2 (09:00→16:56)
[2021-12-02] MEDS: OMEPRAZOLE 20 MG CAPSULE PO SCH (09:19)
[2021-12-02] MEDS: AmLODIPine BESYLATE 5 MG TABLET PO SCH (09:19)
[2021-12-02] MEDS: DOCUSATE SODIUM 100 MG CAPSULE PO SCH (09:19)
[2021-12-02] MEDS: GABAPENTIN 100 MG CAPSULE PO SCH ×2 (09:19→16:56)
[2021-12-02] MEDS: LORATADINE 10 MG TABLET PO SCH (09:19)
[2021-12-02] MEDS: IBUPROFEN 600 MG TABLET PO PRN (09:42)
[2021-12-02] MEDS: ACETAMINOPHEN 325 MG TABLET PO PRN ×2 (16:09→20:29)
[2021-12-02] MEDS: TiZANidine HCL 4 MG TABLET PO PRN (16:13)
[2021-12-02 20:26] VITALS: BP 137/86
[2021-12-02] MEDS: TraZODone HCL 50 MG TABLET PO SCH (20:29)
[2021-12-02] MEDS: LURASIDONE HCL 80 MG TABLET PO SCH ×2 (20:29→20:38)
[2021-12-03] MEDS: ACETAMINOPHEN 325 MG TABLET PO PRN ×2 (05:55→16:10)
[2021-12-03] MEDS: LEVOTHYROXINE SODIUM 50 MCG TABLET PO SCH (06:13)
[2021-12-03] MEDS: DOCUSATE SODIUM 100 MG CAPSULE PO SCH (08:23)
[2021-12-03] MEDS: DIVALPROEX SODIUM 500 MG DR TABLET PO SCH ×2 (08:23→16:10)
[2021-12-03] MEDS: OMEPRAZOLE 20 MG CAPSULE PO SCH (08:23)
[2021-12-03] MEDS: GABAPENTIN 100 MG CAPSULE PO SCH ×2 (08:23→16:10)
[2021-12-03] MEDS: LORATADINE 10 MG TABLET PO SCH (08:23)
[2021-12-03] MEDS: AmLODIPine BESYLATE 5 MG TABLET PO SCH (08:23)
[2021-12-03 08:53] VITALS: BP 132/90
[2021-12-03 09:41] LABS: GLUCOMETER DEV NAME(LOC) POC.BV
[2021-12-03 18:04] VITALS: BP 135/86
[2021-12-03] MEDS: TiZANidine HCL 4 MG TABLET PO PRN (18:04)
[2021-12-03 20:23] VITALS: BP 136/84
[2021-12-03] MEDS: LURASIDONE HCL 80 MG TABLET PO SCH ×2 (20:28→21:00)
[2021-12-03] MEDS: TraZODone HCL 50 MG TABLET PO SCH (20:28)
[2021-12-03] MEDS: IBUPROFEN 600 MG TABLET PO PRN (21:12)
[2021-12-04 06:08] VITALS: BP 140/80
[2021-12-04] MEDS: ACETAMINOPHEN 325 MG TABLET PO PRN ×2 (06:08→16:33)
[2021-12-04] MEDS: LEVOTHYROXINE SODIUM 50 MCG TABLET PO SCH (06:55)
[2021-12-04 08:21] VITALS: BP 144/90
[2021-12-04] MEDS: OMEPRAZOLE 20 MG CAPSULE PO SCH (08:44)
[2021-12-04] MEDS: GABAPENTIN 100 MG CAPSULE PO SCH ×2 (08:44→16:27)
[2021-12-04] MEDS: DOCUSATE SODIUM 100 MG CAPSULE PO SCH (08:44)
[2021-12-04] MEDS: DIVALPROEX SODIUM 500 MG DR TABLET PO SCH ×2 (08:44→16:27)
[2021-12-04] MEDS: AmLODIPine BESYLATE 5 MG TABLET PO SCH (08:44)
[2021-12-04] MEDS: LORATADINE 10 MG TABLET PO SCH (08:44)
[2021-12-04 20:02] VITALS: BP 135/81
[2021-12-04] MEDS: TraZODone HCL 50 MG TABLET PO SCH (20:13)
[2021-12-04] MEDS: LURASIDONE HCL 80 MG TABLET PO SCH (20:17)
[2021-12-04] MEDS: IBUPROFEN 600 MG TABLET PO PRN (20:32)
[2021-12-05] MEDS: ALENDRONATE SODIUM 70 MG TABLET PO SCH (06:49)
[2021-12-05] MEDS: LEVOTHYROXINE SODIUM 50 MCG TABLET PO SCH (06:49)
[2021-12-05 08:05] VITALS: BP 129/72
[2021-12-05] MEDS: GABAPENTIN 100 MG CAPSULE PO SCH ×2 (08:37→16:28)
[2021-12-05] MEDS: DOCUSATE SODIUM 100 MG CAPSULE PO SCH (08:37)
[2021-12-05] MEDS: LORATADINE 10 MG TABLET PO SCH (08:37)
[2021-12-05] MEDS: OMEPRAZOLE 20 MG CAPSULE PO SCH (08:37)
[2021-12-05] MEDS: AmLODIPine BESYLATE 5 MG TABLET PO SCH (08:37)
[2021-12-05] MEDS: ACETAMINOPHEN 325 MG TABLET PO PRN ×2 (08:38→17:03)
[2021-12-05] MEDS: DIVALPROEX SODIUM 500 MG DR TABLET PO SCH ×2 (08:38→16:28)
[2021-12-05] MEDS: TraZODone HCL 50 MG TABLET PO SCH (20:08)
[2021-12-05] MEDS: LURASIDONE HCL 80 MG TABLET PO SCH (20:12)
[2021-12-05 21:28] VITALS: BP 135/73
[2021-12-06] MEDS: LEVOTHYROXINE SODIUM 50 MCG TABLET PO SCH (06:24)
[2021-12-06] MEDS: GABAPENTIN 100 MG CAPSULE PO SCH ×2 (08:26→17:16)
[2021-12-06] MEDS: OMEPRAZOLE 20 MG CAPSULE PO SCH (08:26)
[2021-12-06] MEDS: AmLODIPine BESYLATE 5 MG TABLET PO SCH (08:26)
[2021-12-06] MEDS: LORATADINE 10 MG TABLET PO SCH (08:26)
[2021-12-06] MEDS: DOCUSATE SODIUM 100 MG CAPSULE PO SCH (08:26)
[2021-12-06] MEDS: DIVALPROEX SODIUM 500 MG DR TABLET PO SCH ×2 (08:26→17:16)
[2021-12-06 09:15] VITALS: BP 142/88
[2021-12-06] MEDS: ACETAMINOPHEN 325 MG TABLET PO PRN (17:16)
[2021-12-06 20:28] VITALS: BP 147/79
[2021-12-06] MEDS: IBUPROFEN 600 MG TABLET PO PRN (20:33)
[2021-12-06] MEDS: TraZODone HCL 50 MG TABLET PO SCH (20:34)
[2021-12-06] MEDS: LURASIDONE HCL 80 MG TABLET PO SCH (20:40)
[2021-12-07] MEDS: LEVOTHYROXINE SODIUM 50 MCG TABLET PO SCH (06:27)
[2021-12-07 08:24] VITALS: BP 126/80
[2021-12-07] MEDS: GABAPENTIN 100 MG CAPSULE PO SCH ×2 (08:48→15:51)
[2021-12-07] MEDS: DOCUSATE SODIUM 100 MG CAPSULE PO SCH (08:48)
[2021-12-07] MEDS: OMEPRAZOLE 20 MG CAPSULE PO SCH (08:48)
[2021-12-07] MEDS: DIVALPROEX SODIUM 500 MG DR TABLET PO SCH ×2 (08:48→15:51)
[2021-12-07] MEDS: ACETAMINOPHEN 325 MG TABLET PO PRN (08:49)
[2021-12-07] MEDS: AmLODIPine BESYLATE 5 MG TABLET PO SCH (08:49)
[2021-12-07] MEDS: LORATADINE 10 MG TABLET PO SCH (14:54)
[2021-12-07 20:09] VITALS: BP 160/90
[2021-12-07] MEDS: TraZODone HCL 50 MG TABLET PO SCH (20:31)
[2021-12-07] MEDS: LURASIDONE HCL 80 MG TABLET PO SCH (20:35)
[2021-12-08 02:30] VITALS: BP 123/82
[2021-12-08] MEDS: IBUPROFEN 600 MG TABLET PO PRN (02:31)
[2021-12-08] MEDS: LEVOTHYROXINE SODIUM 50 MCG TABLET PO SCH (06:07)
[2021-12-08] MEDS: DOCUSATE SODIUM 100 MG CAPSULE PO SCH (08:06)
[2021-12-08] MEDS: OMEPRAZOLE 20 MG CAPSULE PO SCH (08:06)
[2021-12-08] MEDS: DIVALPROEX SODIUM 500 MG DR TABLET PO SCH ×2 (08:06→16:54)
[2021-12-08] MEDS: AmLODIPine BESYLATE 5 MG TABLET PO SCH (08:07)
[2021-12-08] MEDS: LORATADINE 10 MG TABLET PO SCH (08:07)
[2021-12-08] MEDS: GABAPENTIN 100 MG CAPSULE PO SCH ×2 (08:07→16:54)
[2021-12-08 08:21] VITALS: BP 143/91
[2021-12-08 18:08] VITALS: BP 144/89
[2021-12-08] MEDS: ACETAMINOPHEN 325 MG TABLET PO PRN (18:10)
[2021-12-08] MEDS: TraZODone HCL 50 MG TABLET PO SCH (20:33)
[2021-12-08] MEDS: LURASIDONE HCL 80 MG TABLET PO SCH (20:34)
[2021-12-08 20:38] VITALS: BP 137/86
[2021-12-09] MEDS: LEVOTHYROXINE SODIUM 50 MCG TABLET PO SCH (06:18)
[2021-12-09 09:04] VITALS: BP 134/86
[2021-12-09] MEDS: GABAPENTIN 100 MG CAPSULE PO SCH ×2 (09:07→16:11)
[2021-12-09] MEDS: DIVALPROEX SODIUM 500 MG DR TABLET PO SCH ×2 (09:07→16:11)
[2021-12-09] MEDS: LORATADINE 10 MG TABLET PO SCH (09:07)
[2021-12-09] MEDS: DOCUSATE SODIUM 100 MG CAPSULE PO SCH (09:07)
[2021-12-09] MEDS: AmLODIPine BESYLATE 5 MG TABLET PO SCH (09:07)
[2021-12-09] MEDS: OMEPRAZOLE 20 MG CAPSULE PO SCH (09:07)
[2021-12-09] MEDS: TraZODone HCL 50 MG TABLET PO SCH (20:04)
[2021-12-09 20:10] VITALS: BP 152/66
[2021-12-09] MEDS: ACETAMINOPHEN 325 MG TABLET PO PRN (20:10)
[2021-12-09] MEDS: LURASIDONE HCL 80 MG TABLET PO SCH (20:23)
[2021-12-10] MEDS: LEVOTHYROXINE SODIUM 50 MCG TABLET PO SCH (06:30)
[2021-12-10 08:59] VITALS: BP 146/80
[2021-12-10 09:46] LABS: GLUCOMETER DEV NAME(LOC) POC.BV
[2021-12-10] MEDS: DOCUSATE SODIUM 100 MG CAPSULE PO SCH (09:56)
[2021-12-10] MEDS: DIVALPROEX SODIUM 500 MG DR TABLET PO SCH ×2 (09:56→16:24)
[2021-12-10] MEDS: GABAPENTIN 100 MG CAPSULE PO SCH ×2 (09:56→16:24)
[2021-12-10] MEDS: ACETAMINOPHEN 325 MG TABLET PO PRN (09:57)
[2021-12-10] MEDS: LORATADINE 10 MG TABLET PO SCH (09:57)
[2021-12-10] MEDS: OMEPRAZOLE 20 MG CAPSULE PO SCH (09:57)
[2021-12-10] MEDS: AmLODIPine BESYLATE 5 MG TABLET PO SCH (09:57)
[2021-12-10] MEDS ORDERED: TUBERCULIN, PURIFIED PROTEIN DERIVATIVE 5 TU/0.1 ML SYRINGE ID ONE (18:15)
[2021-12-10] MEDS: TraZODone HCL 50 MG TABLET PO SCH (20:05)
[2021-12-10] MEDS: LURASIDONE HCL 80 MG TABLET PO SCH (20:12)
[2021-12-10 20:17] VITALS: BP 144/83
[2021-12-10] MEDS: IBUPROFEN 600 MG TABLET PO PRN (20:54)
[2021-12-10] MEDS: DICLOFENAC SODIUM 1% 100 GM GEL [2GM] TP PRN (20:55)
[2021-12-11] MEDS: LEVOTHYROXINE SODIUM 50 MCG TABLET PO SCH (06:44)
[2021-12-11] MEDS: DICLOFENAC SODIUM 1% 100 GM GEL [2GM] TP PRN ×2 (06:45→14:45)
[2021-12-11 08:07] VITALS: BP 146/95
[2021-12-11] MEDS: OMEPRAZOLE 20 MG CAPSULE PO SCH (08:20)
[2021-12-11] MEDS: DOCUSATE SODIUM 100 MG CAPSULE PO SCH (08:20)
[2021-12-11] MEDS: LORATADINE 10 MG TABLET PO SCH (08:21)
[2021-12-11] MEDS: AmLODIPine BESYLATE 5 MG TABLET PO SCH (08:21)
[2021-12-11] MEDS: GABAPENTIN 100 MG CAPSULE PO SCH ×2 (08:21→16:33)
[2021-12-11] MEDS: DIVALPROEX SODIUM 500 MG DR TABLET PO SCH ×2 (08:21→16:33)
[2021-12-11] MEDS: ACETAMINOPHEN 325 MG TABLET PO PRN ×2 (08:33→16:33)
[2021-12-11] MEDS ORDERED: TUBERCULIN, PURIFIED PROTEIN DERIVATIVE 5 TU/0.1 ML SYRINGE ID ONE (11:45)
[2021-12-11 20:02] VITALS: BP 139/66
[2021-12-11] MEDS: LURASIDONE HCL 80 MG TABLET PO SCH (20:02)
[2021-12-11] MEDS: TraZODone HCL 50 MG TABLET PO SCH (20:02)
[2021-12-11] MEDS: IBUPROFEN 600 MG TABLET PO PRN (20:02)
[2021-12-11 20:42] VITALS: BP 146/95
[2021-12-12] MEDS: DICLOFENAC SODIUM 1% 100 GM GEL [2GM] TP PRN ×2 (05:40→14:30)
[2021-12-12] MEDS: ALENDRONATE SODIUM 70 MG TABLET PO SCH (06:44)
[2021-12-12] MEDS: LEVOTHYROXINE SODIUM 50 MCG TABLET PO SCH (06:44)
[2021-12-12 08:04] VITALS: BP 134/75
[2021-12-12] MEDS: DOCUSATE SODIUM 100 MG CAPSULE PO SCH (08:27)
[2021-12-12] MEDS: LORATADINE 10 MG TABLET PO SCH (08:27)
[2021-12-12] MEDS: DIVALPROEX SODIUM 500 MG DR TABLET PO SCH ×2 (08:27→16:09)
[2021-12-12] MEDS: OMEPRAZOLE 20 MG CAPSULE PO SCH (08:27)
[2021-12-12] MEDS: AmLODIPine BESYLATE 5 MG TABLET PO SCH (08:27)
[2021-12-12] MEDS: GABAPENTIN 100 MG CAPSULE PO SCH ×2 (08:27→16:09)
[2021-12-12] MEDS: ACETAMINOPHEN 325 MG TABLET PO PRN (08:28)
[2021-12-12 20:07] VITALS: BP 144/78
[2021-12-12] MEDS: LURASIDONE HCL 80 MG TABLET PO SCH (20:24)
[2021-12-12] MEDS: TraZODone HCL 50 MG TABLET PO SCH (20:24)
[2021-12-12] MEDS: IBUPROFEN 600 MG TABLET PO PRN (20:33)
[2021-12-13 04:23] VITALS: BP 124/79
[2021-12-13] MEDS: DICLOFENAC SODIUM 1% 100 GM GEL [2GM] TP PRN ×2 (04:36→15:25)
[2021-12-13] MEDS: LEVOTHYROXINE SODIUM 50 MCG TABLET PO SCH (06:36)
[2021-12-13 08:22] VITALS: BP 150/77
[2021-12-13] MEDS: AmLODIPine BESYLATE 5 MG TABLET PO SCH (08:40)
[2021-12-13] MEDS: LORATADINE 10 MG TABLET PO SCH (08:40)
[2021-12-13] MEDS: GABAPENTIN 100 MG CAPSULE PO SCH ×2 (08:40→16:10)
[2021-12-13] MEDS: ACETAMINOPHEN 325 MG TABLET PO PRN (08:40)
[2021-12-13] MEDS: DOCUSATE SODIUM 100 MG CAPSULE PO SCH (08:40)
[2021-12-13] MEDS: OMEPRAZOLE 20 MG CAPSULE PO SCH (08:40)
[2021-12-13] MEDS: DIVALPROEX SODIUM 500 MG DR TABLET PO SCH ×2 (08:40→16:10)
[2021-12-13 10:00] VITALS: BP 142/76
[2021-12-13 20:00] VITALS: BP 138/78
[2021-12-13] MEDS: LURASIDONE HCL 80 MG TABLET PO SCH (20:35)
[2021-12-13] MEDS: TraZODone HCL 50 MG TABLET PO SCH (20:35)
[2021-12-13] MEDS: IBUPROFEN 600 MG TABLET PO PRN (20:40)
[2021-12-14] MEDS: DICLOFENAC SODIUM 1% 100 GM GEL [2GM] TP PRN ×2 (02:39→15:05)
[2021-12-14] MEDS: LEVOTHYROXINE SODIUM 50 MCG TABLET PO SCH (06:19)
[2021-12-14 08:13] VITALS: BP 142/72
[2021-12-14] MEDS: GABAPENTIN 100 MG CAPSULE PO SCH ×2 (08:59→16:52)
[2021-12-14] MEDS: OMEPRAZOLE 20 MG CAPSULE PO SCH (08:59)
[2021-12-14] MEDS: DOCUSATE SODIUM 100 MG CAPSULE PO SCH ×2 (08:59→09:00)
[2021-12-14] MEDS: AmLODIPine BESYLATE 5 MG TABLET PO SCH (08:59)
[2021-12-14] MEDS: DIVALPROEX SODIUM 500 MG DR TABLET PO SCH ×2 (08:59→16:52)
[2021-12-14] MEDS: LORATADINE 10 MG TABLET PO SCH (09:00)
[2021-12-14] MEDS: ACETAMINOPHEN 325 MG TABLET PO PRN ×2 (09:05→16:52)
[2021-12-14 20:10] VITALS: BP 131/84
[2021-12-14] MEDS: TraZODone HCL 50 MG TABLET PO SCH (20:30)
[2021-12-14] MEDS: LURASIDONE HCL 80 MG TABLET PO SCH (20:30)
[2021-12-14] MEDS: IBUPROFEN 600 MG TABLET PO PRN (20:41)
[2021-12-15] MEDS: DICLOFENAC SODIUM 1% 100 GM GEL [2GM] TP PRN (05:19)
[2021-12-15] MEDS: LEVOTHYROXINE SODIUM 50 MCG TABLET PO SCH (06:30)
[2021-12-15 08:36] VITALS: BP 137/84
[2021-12-15] MEDS: DIVALPROEX SODIUM 500 MG DR TABLET PO SCH ×2 (10:07→17:05)
[2021-12-15] MEDS: GABAPENTIN 100 MG CAPSULE PO SCH ×2 (10:07→17:05)
[2021-12-15] MEDS: DOCUSATE SODIUM 100 MG CAPSULE PO SCH (10:07)
[2021-12-15] MEDS: OMEPRAZOLE 20 MG CAPSULE PO SCH (10:07)
[2021-12-15] MEDS: AmLODIPine BESYLATE 5 MG TABLET PO SCH (10:07)
[2021-12-15] MEDS: LORATADINE 10 MG TABLET PO SCH (10:07)
[2021-12-15] MEDS: ACETAMINOPHEN 325 MG TABLET PO PRN ×2 (10:15→15:49)
[2021-12-15 17:05] VITALS: BP 142/90
[2021-12-15] MEDS: TiZANidine HCL 4 MG TABLET PO PRN (17:05)
[2021-12-15 20:11] VITALS: BP 140/90
[2021-12-15] MEDS: TraZODone HCL 50 MG TABLET PO SCH (20:16)
[2021-12-15] MEDS: LURASIDONE HCL 80 MG TABLET PO SCH (20:16)
[2021-12-15] MEDS: IBUPROFEN 600 MG TABLET PO PRN (20:20)
[2021-12-16] MEDS: TiZANidine HCL 4 MG TABLET PO PRN (05:16)
[2021-12-16] MEDS: LEVOTHYROXINE SODIUM 50 MCG TABLET PO SCH (06:53)
[2021-12-16 08:19] VITALS: BP 157/85
[2021-12-16] MEDS: GABAPENTIN 100 MG CAPSULE PO SCH (09:12)
[2021-12-16] MEDS: DIVALPROEX SODIUM 500 MG DR TABLET PO SCH (09:12)
[2021-12-16] MEDS: DOCUSATE SODIUM 100 MG CAPSULE PO SCH (09:12)
[2021-12-16] MEDS: AmLODIPine BESYLATE 5 MG TABLET PO SCH (09:12)
[2021-12-16] MEDS: OMEPRAZOLE 20 MG CAPSULE PO SCH (09:12)
[2021-12-16] MEDS: LORATADINE 10 MG TABLET PO SCH (09:12)
[2021-12-16] MEDS: ACETAMINOPHEN 325 MG TABLET PO PRN (09:16)
[2021-12-16] MEDS ORDERED: TRAZ-252 PO (11:41)
[2021-12-16] MEDS ORDERED: DIVA-112 PO (11:41)
[2021-12-16] MEDS ORDERED: LURA80TA2 PO (11:41)
[2021-12-16] MEDS ORDERED: LEVO50 PO (14:10)
[2021-12-16] MEDS ORDERED: AMLO-258 PO (14:10)
== END 2021-12-16 13:00 | disposition home or self-care (01) | DRG 885 ==
LOC: EMS 14:08 → B2S 11-14 05:15
PROVIDERS: ADMIT Psychiatry & Neurology Psychiatry; ATTEND Psychiatry & Neurology Psychiatry
DX: F20.9 Schizophrenia, unspecified (principal); B19.20 Unspecified viral hepatitis C without hepatic coma; R45.851 Suicidal ideations; F32.9 Major depressive disorder, single episode, unspecified; E03.9 Hypothyroidism, unspecified; F43.10 Post-traumatic stress disorder, unspecified; G89.29 Other chronic pain; I10 Essential (primary) hypertension; G24.9 Dystonia, unspecified; F32.A Depression, unspecified; Z20.822 Contact with and (suspected) exposure to COVID-19; G47.00 Insomnia, unspecified; K59.00 Constipation, unspecified; F41.9 Anxiety disorder, unspecified; K21.9 Gastro-esophageal reflux disease without esophagitis; Z87.11 Personal history of peptic ulcer disease; Z79.899 Other long term (current) drug therapy; Z88.8 Allergy status to other drugs, medicaments and biological substances; Z88.0 Allergy status to penicillin; Z88.5 Allergy status to narcotic agent
CPT/HCPCS: 72040; 73521; 80053; 80164; 81001; 82962; 85025; 99285; G0480; Q9967

== ENCOUNTER 2024-01-28 18:56 | Emergency (ER) | payer MEDICARE, MEDICAID ==
[~2024-01-28] VITALS: Ht 154.9 cm; Wt 54.5 kg
[~2024-01-28 18:56] MED LIST changes: -CALC-789 PO; -DICL100G31 TP; +DIVA-112 PO; -DIVA-85 PO; -LORA10TA7 PO; +LURA80TA2 PO; -OMEP20 PO; -SERT-158 PO; +TRAZ-252 PO; -[UNRECOGNIZED DRUG - CODE] PO
[2024-01-28 19:02] VITALS: TEMP 98.1
[2024-01-28 21:00] VITALS: BP 124/71; PULSE 79; RESP 17; O2SAT 98
[2024-01-28] MEDS: TraMADol HCL 50 MG TABLET PO ONE (21:15)
[2024-01-28] MEDS ORDERED: TRAM50TA5 PO (21:40)
== END 2024-01-28 22:07 | disposition home or self-care (01) ==
LOC: EMS 19:00
DX: G89.4 Chronic pain syndrome (principal); M79.671 Pain in right foot; F25.9 Schizoaffective disorder, unspecified; E03.9 Hypothyroidism, unspecified; F32.A Depression, unspecified; I10 Essential (primary) hypertension; M19.90 Unspecified osteoarthritis, unspecified site; Z98.890 Other specified postprocedural states; Z88.5 Allergy status to narcotic agent; Z88.0 Allergy status to penicillin; Z87.11 Personal history of peptic ulcer disease; Z79.899 Other long term (current) drug therapy
CPT/HCPCS: 99283

== ENCOUNTER 2024-07-21 08:01 | Emergency (ER) | payer MEDICARE, MEDICAID ==
[~2024-07-21] VITALS: Ht 152.4 cm; Wt 52.3 kg
[~2024-07-21 08:01] MED LIST changes: +ACET-3862 PO; +ALEN70TA80 PO; +AMLO10TA55 PO; +DICL100G60 TP; +LEVO50TA11 PO; +OMEP20CA12 PO; +VALB40CA2 PO
[2024-07-21 09:20] VITALS: BP 113/68; PULSE 67; RESP 18; TEMP 97.6; O2SAT 97
[2024-07-21] MEDS: LIDOCAINE 5% TRANSDERMAL PATCH TD ONE (09:34)
== END 2024-07-21 11:10 | disposition home or self-care (01) ==
LOC: EMS 08:20
DX: S16.1XXA Strain of muscle, fascia and tendon at neck level, initial encounter (principal); I10 Essential (primary) hypertension; Z88.0 Allergy status to penicillin; Z88.5 Allergy status to narcotic agent; Z88.8 Allergy status to other drugs, medicaments and biological substances; Z79.899 Other long term (current) drug therapy; X58.XXXA Exposure to other specified factors, initial encounter; Y93.89 Activity, other specified; Y92.89 Other specified places as the place of occurrence of the external cause; Y99.8 Other external cause status
CPT/HCPCS: 99283